=== PATIENT | female | born 1970 | race Caucasian/White ===

== ENCOUNTER → 2016-06-19 | Outpatient (CLI) | payer BC ==
[~2016-06-19] VITALS: Ht 166.4 cm; Wt 100.5 kg
[~2016-06-19] MED LIST: AYR SALINE GEL1 NS; BACTROBAN22 TP; BETAMETHASONE D TP; CALCIUM 600/VIT1 TAB PO; CALCIUM CARB W/1 TA1 PO; CELLCEPT 5500 MG/TAB PO; CHOLESTYRA PO; CIPRO 500MG TA500 MG PO; CLINDAMAX2% VG; CLINDAMYCIN PHOSPH1% TP; CYANOCOBAL1000 MCG/1 SQ; DESONIDE0.05% TP; FASTIN30 MG PO; FERRIMIN 150150 M1 PO; FERROUS SULFATE PO; FLEXERIL 1010 MG/TAB PO; FLUOXETINE10 MG PO; GENTEAL 0.25%-015 ML OU; IMODIUM2 MG PO; IRON325 M1 PO; LASIX 20MG TABL20 MG PO; LORTAB 5/500 501 TAB PO; NUVARING VAG RING; OTREXUP10 MG/0.4 SQ; PERCOCET 325 MG1 TA2 PO; PHENTERMINE30 MG PO; PREDNISONE 5MG5 MG PO; PRENATAL VITAMI1 TAB PO; PROCARDIA XL 3030 MG PO; PROCARDIA XL90 MG PO; PROCARDIA10 MG; PROTONIX 40MG T40 MG PO; PSEUDOEPHEDRINE30 MG PO; REVATIO20 MG PO; SINGULAIR 110 MG/TAB PO; SINGULAIR10 MG PO; TOPAMAX 25MG25 M1 PO; TRIAMCINOLONE0.5% TP; TYLENOL 325MG325 MG PO; TYLENOL ARTHRITIS; TYLENOL PM EXTR1 TA1 PO; VITAMIN C BUFF500 MG PO; VITAMIN D 50,1.25 MG PO; VITAMIN D31000 IU PO; VITAMIN INJ; ZYRTEC5 MG PO; [UNRECOGNIZED DRUG - REMARK]; allergy shots
== END ==
LOC: LIGHT 08:34
DX: E88.81 Metabolic syndrome and other insulin resistance (principal); E78.4 Other hyperlipidemia; E66.09 Other obesity due to excess calories; Z68.35 Body mass index [BMI] 35.0-35.9, adult

== ENCOUNTER → 2016-09-11 | Outpatient (CLI) | payer BC ==
[~2016-09-11] VITALS: Ht 166.4 cm; Wt 103.6 kg
[2016-09-11 09:20] VITALS: BP 134/61; PULSE 86
== END ==
LOC: LIGHT 09:50
DX: E88.81 Metabolic syndrome and other insulin resistance (principal); E78.5 Hyperlipidemia, unspecified; E66.9 Obesity, unspecified; Z68.38 Body mass index [BMI] 38.0-38.9, adult

== ENCOUNTER → 2016-12-25 | Outpatient (CLI) | payer BC ==
[~2016-12-25] VITALS: Ht 166.4 cm; Wt 104.1 kg
[2016-12-25 13:34] VITALS: BP 106/56; PULSE 72
[2017-01-05 11:17] VITALS: BP 110/74; PULSE 80
== END ==
LOC: LIGHT 13:07
DX: E88.81 Metabolic syndrome and other insulin resistance (principal); E78.5 Hyperlipidemia, unspecified; E66.9 Obesity, unspecified; Z68.38 Body mass index [BMI] 38.0-38.9, adult; Z71.3 Dietary counseling and surveillance

== ENCOUNTER → 2017-03-26 | Outpatient (CLI) | payer BC ==
[~2017-03-26] VITALS: Ht 166.4 cm; Wt 106.8 kg
[2017-03-26 09:27] VITALS: BP 100/70; PULSE 80
== END ==
LOC: LIGHT 09:23
DX: E88.81 Metabolic syndrome and other insulin resistance (principal); E78.5 Hyperlipidemia, unspecified; E66.9 Obesity, unspecified; Z68.38 Body mass index [BMI] 38.0-38.9, adult; Z71.3 Dietary counseling and surveillance

== ENCOUNTER → 2018-09-21 | Outpatient (CLI) | payer BC | LOC: MC.RAD 08-30 10:45 | DX: Z12.31 Encounter for screening mammogram for malignant neoplasm of breast (principal) ==

== ENCOUNTER 2023-06-29 07:10 | Day surgery (SDC) | payer BC ==
[~2023-06-29] VITALS: Ht 165.1 cm; Wt 115.7 kg
[~2023-06-29 07:10] MED LIST changes: -CHOLESTYRA PO; +LR 1,000 ML IV SCH; +MOBIC15 MG PO; +Ondansetron 4 MG/2 ML VIAL IV PRN; +PREDNISONE20 MG PO; +QUESTRAN4 GM/9 GM PO
[2023-06-29] MEDS ORDERED: ZYRTEC 10MG10 MG PO (07:43)
[2023-06-29 08:04] VITALS: BP 118/64; PULSE 73; TEMP 97
--- NOTE | 2023-06-29 08:17 | NUR ---
0722 Pt ambulatory to bay 2 with a steady gait, breathing even and unlabored. Pt is alert and oriented. Consents reviewed and signed by pt. IV established. LR infusing via gravity at KVO. Call light in reach. Warm blanket provided.
[2023-06-29] MEDS ORDERED: Lidocaine PF 2% (20 MG/ML) 5 ML VIAL ONE (08:24)
[2023-06-29 09:10] VITALS: BP 110/69; PULSE 62
[2023-06-29 09:25] VITALS: BP 102/66; PULSE 61
[2023-06-29 09:40] VITALS: BP 106/69; PULSE 62
--- NOTE | 2023-06-29 17:09 | NUR ---
0910 PATIENT RETURNS TO [facility] VIA CART. PT AWAKE AND ALERT. RESPIRATIONS UNLABORED. AMBULATED TO RECLINER CHAIR WITH 2:1 SBA. PT DENIES NAUSEA OR ABDOMINAL PAIN. HOOKED UP TO MONITOR AND VS OBTAINED. CALL LIGHT AT SIDE AND PRESENT. 0923 PATIENT TOLERATING COFFEE, WATER, AND MUFFIN, CHEESE WITHOUT NAUSEA OR DIFFICULTY SWALLOWING (EGD ONLY). 0937 IN ROOM SPEAKING WITH PATIENT. 0940 D/C INSTRUCTIONS REVIEWED WITH PATIENT. PT VERBALIZED UNDERSTANDING AND A COPY OF INSTRUCTIONS PROVIDED IN D/C FOLDER. 0947 PATIENT DRESSES SELF. 0950 PATIENT DISCHARGED FROM UNIT VIA W/C TO A PERSONAL VEHICLE. PT LEFT HOSPITAL IN STABLE CONDITION.
== END 2023-06-29 09:50 | disposition home or self-care (01) ==
LOC: SDCO 07:10
DX: K58.2 Mixed irritable bowel syndrome (principal); K22.2 Esophageal obstruction; K21.00 Gastro-esophageal reflux disease with esophagitis, without bleeding; K31.89 Other diseases of stomach and duodenum; K64.4 Residual hemorrhoidal skin tags; K44.9 Diaphragmatic hernia without obstruction or gangrene; K21.9 Gastro-esophageal reflux disease without esophagitis; R19.7 Diarrhea, unspecified
CPT/HCPCS: C1726; J2704; J7120